=== PATIENT | female | born 1940 | race Hispanic/Latino ===

== ENCOUNTER 2018-01-22 20:29 | Emergency (ER) | payer MEDICARE, MEDICAID ==
[~2018-01-22 20:29] MED LIST: ISOVUE-370 76%-LOCM 1 ML ONE
[2018-01-22 20:58] LABS: #Lymphocytes 0.6 thou/uL (1.20-3.40); #Monocytes 0.3 thou/uL (0.11-0.59); #Neutrophils 5.6 thou/uL (1.40-6.50); %Eosinophils 0.3 % (0.0-10.0); %Lymphocytes 9.1 % (21.0-51.0); %Neutrophils 86.6 % (42.0-75.0); Hemoglobin 14.5 g/dL (12.0-16.0); Mean Corpuscular HGB CONC 32.5 g/dL (32.0-36.0); Mean Corpuscular Hemoglobin 29.8 pg (27.0-31.0); Mean Corpuscular Volume 91.6 fl (81.0-99.0); Mean Platelet Volume 7.8 fL (7.4-10.4); Platelet Count 152 thou/uL (130-400); RBC Distribution Width 12.3 % (11.5-14.5); Red Blood Cell (RBC) Count 4.87 mill/uL (4.20-5.40); White Blood Cell (WBC) Count 6.5 thou/uL (4.8-10.8)
[2018-01-22 21:14] LABS: Lactic Acid 2.7 mmol/L (0.5-2.2)
[2018-01-22 21:17] LABS: ALT (SGPT) 20 U/L (8-55); AST (SGOT) 20 U/L (5-34); Albumin 4.3 g/dL (3.4-4.8); Alkaline Phosphatase 65 U/L (40-150); Anion Gap 16 mmol/L (10-20); BUN (Urea Nitrogen) 14 mg/dL (9.8-20.1); Bilirubin, Total 0.4 mg/dL (0.2-1.2); Calc. Creatinine Clearance 0 mL/min (70-130); Calcium 9.4 mg/dL (7.8-10.44); Carbon Dioxide 21 mmol/L (23-31); Chloride 97 mmol/L (98-107); Estimated GFR-MDRD 60; Globulin 3.3 g/dL (2.4-3.5); Glucose 226 mg/dL (83-110); Potassium 3.7 mmol/L (3.5-5.1); Protein, Total 7.6 g/dL (6.0-8.3); Sodium 130 mmol/L (136-145)
[2018-01-22 21:18] LABS: CK (CPK) 69 U/L (29-168); Lipase 26 U/L (8-78)
[2018-01-22 21:23] LABS: CKMB 0.9 ng/mL (0-6.6); Troponin I Less than 0.010 ng/mL (< 0.028)
--- NOTE | 2018-01-22 21:33 | RAD ---
CHEST ONE VIEW: HISTORY: Fever. Cough. COMPARISON: None. FINDINGS: Atherosclerosis of the aorta. Normal cardiac silhouette. The pulmonary vessels are normal. Costoph renic angles are clear. No consolidation or mass in the right lung. With regard to the left lung ba se, there is a focal opacity. No pneumothorax or osseous abnormalities. IMPRESSION: 1. Atherosclerosis. 2. Focal opacity in the left lung base. Continued surveillance. POS: [facility]
[2018-01-22 22:01] LABS: Bilirubin Negative (Negative); Blood, Urine Negative (Negative); Clarity CLEAR (Clear); Glucose, Urine (Dipstick) 100 mg/dL (Negative); Leukocyte Negative (Negative); Nitrite Negative (Negative); Protein, Urine (Dipstick) Negative (Neg-Trace); Specific Gravity, Urine 1.012 (1.002-1.036); Urobilinogen 0.2 mg/dL (0.2-1.0)
--- NOTE | 2018-01-22 22:38 | CT ---
CT ANGIOGRAM CHEST: HISTORY: Evaluate for pulmonary artery embolism. Worsening cough. History of tobacco abuse. Possible fever. COMPARISON: None. TECHNIQUE: CT angiogram chest is performed in the axial plane. Three-dimensional reformatted images are submitt ed for interpretation. FINDINGS: There is adequate contrast opacification in the pulmonary arterial system, to the level of the segmen jenny arteries. No filling defect to suggest thromboembolism. There is atherosclerosis of a nonaneurysmal aorta. No mediastinal mass, lymphadenopathy, or hematoma . Heart size is within normal limits. There is mild prominence of both central pulmonary arteries. Correlate for pulmonary artery hypertension. Trachea and central bronchi are patent. There is a bleb in the right upper lobe, measuring 2.1 x 1.9 cm. Minimal opacities in the middle lobe, likely due to atelectasis or scar. Linear opacities in t he lingula and left lower lobe, also felt to be due to scar/atelectasis. Left lower lobe bleb measur ing 1.2 x 1.2 cm. No significant pleural fluid. No pneumothorax. There is a cyst in the left hepatic lobe, measuring 1.8 cm. Subcentimeter hypodensity in the right h epatic lobe is too small to characterize. There is a mass involving the left adrenal gland, incompletely evaluated. Currently, this mass has a n attenuation coefficient of 28 Hounsfield units and measures 1.[address] evidence of cholelith iasis. IMPRESSION: 1. No evidence of pulmonary artery embolism to the level of the segmental arteries. 2. Prominence of both pulmonary arteries. Correlate for pulmonary artery hypertension. 3. Indeterminate left adrenal nodule. Nonemergent adrenal mass CT. 4. CT evidence of cholelithiasis without evidence of cholecystitis. 5. Hepatic lesions, as described above. POS: [facility]
== END 2018-01-22 22:52 | disposition home or self-care (01) ==
LOC: ERS 20:29
DX: J20.9 Acute bronchitis, unspecified (principal); E27.9 Disorder of adrenal gland, unspecified; E11.9 Type 2 diabetes mellitus without complications; E78.5 Hyperlipidemia, unspecified; I10 Essential (primary) hypertension; F17.210 Nicotine dependence, cigarettes, uncomplicated; Z71.6 Tobacco abuse counseling; Z79.84 Long term (current) use of oral hypoglycemic drugs; Z79.899 Other long term (current) drug therapy
CPT/HCPCS: 36415; 71045; 71275; 80053; 81003; 82550; 82553; 83605; 83690; 83880; 84484; 85025; 85379; 87040; 93005; 96360; 96361; 99406

== ENCOUNTER 2018-01-25 13:01 | Emergency (ER) | payer MEDICARE, MEDICAID ==
[2018-01-25] MEDS ORDERED: Ondansetron ODT 4 MG TAB ONE (13:15)
== END 2018-01-25 14:42 | disposition left against medical advice (07) ==
LOC: ERS 13:01
DX: Z53.21 Procedure and treatment not carried out due to patient leaving prior to being seen by health care provider (principal)
CPT/HCPCS: Q0162

== ENCOUNTER 2018-02-05 15:36 | Outpatient (CLI) | payer MEDICARE, MEDICAID | END 2018-02-05 15:37 | disposition home or self-care (01) | LOC: BICRAD 15:36 | PROVIDERS: ATTEND Family Medicine | DX: J20.9 Acute bronchitis, unspecified (principal) | CPT/HCPCS: 71046 ==

== ENCOUNTER 2018-04-13 11:14 | Outpatient (CLI) | payer MEDICARE, MEDICAID | END 2018-04-13 11:15 | disposition home or self-care (01) | LOC: BICRAD 11:14 | PROVIDERS: ATTEND Family Medicine | DX: M25.561 Pain in right knee (principal); M17.11 Unilateral primary osteoarthritis, right knee ==

== ENCOUNTER 2018-08-10 09:45 | Outpatient (CLI) | payer MEDICARE, MEDICAID | END 2018-08-10 09:46 | disposition home or self-care (01) | LOC: BICMAMMO 09:45 | PROVIDERS: ATTEND Family Medicine | DX: Z12.31 Encounter for screening mammogram for malignant neoplasm of breast (principal) | CPT/HCPCS: 77063; 77067 ==

== ENCOUNTER 2019-09-03 09:23 | Outpatient (CLI) | payer MEDICARE, MEDICAID ==
--- NOTE | 2019-09-03 10:06 | MMO ---
Bilateral MAMMO Bilat Screen [facility]. CLINICAL HISTORY: Patient is 78 years old and is seen for screening. The patient has no family history of breast cancer. The patient has no personal history of cancer. VIEWS: The views performed were: bilateral craniocaudal with tomosynthesis and bilateral mediolateral oblique with tomosynthesis. FILMS COMPARED: The present examination has been compared to prior imaging studies performed at [facility] on 06/13/2016, 07/24/2017 and 08/10/2018. This study has been interpreted with the assistance of computer-aided detection. MAMMOGRAM FINDINGS: There are scattered fibroglandular densities. There are vascular calcifications seen in both breasts. There are no suspicious masses, suspicious calcifications, or new areas of architectural distortion. IMPRESSION: A ROUTINE FOLLOW-UP MAMMOGRAM IN 1 YEAR IS RECOMMENDED. THE RESULTS OF THIS EXAM WERE SENT TO THE PATIENT. ACR BI-RADS Category 2 - Benign finding MAMMOGRAPHY NOTE: 1. A negative mammogram report should not delay a biopsy if a dominant of clinically suspicious mass is present. 2. Approximately 10% to 15% of breast cancers are not detected by mammography. 3. Adenosis and dense breasts may obscure an underlying neoplasm. Reported by: MIGEL SCHROEDER MD Electonically Signed: [id number]
== END 2019-09-03 09:24 | disposition home or self-care (01) ==
LOC: BICMAMMO 09:23
PROVIDERS: ATTEND Family Medicine
DX: Z12.31 Encounter for screening mammogram for malignant neoplasm of breast (principal)
CPT/HCPCS: 77063; 77067

== ENCOUNTER 2021-09-02 10:06 | Outpatient (CLI) | payer MEDICARE, MEDICAID | END 2021-09-02 10:07 | disposition home or self-care (01) | LOC: BICMAMMO 10:06 | PROVIDERS: ATTEND Family Medicine | DX: Z12.31 Encounter for screening mammogram for malignant neoplasm of breast (principal); Z13.820 Encounter for screening for osteoporosis; N95.9 Unspecified menopausal and perimenopausal disorder | CPT/HCPCS: 77063; 77067; 77080 ==

== ENCOUNTER 2024-07-24 14:01 | Outpatient (CLI) | payer MEDICARE, MEDICAID | END 2024-07-24 14:02 | disposition home or self-care (01) | LOC: BICMAMMO 14:01 | PROVIDERS: ATTEND Family Medicine | DX: Z12.31 Encounter for screening mammogram for malignant neoplasm of breast (principal); M81.0 Age-related osteoporosis without current pathological fracture; N63.10 Unspecified lump in the right breast, unspecified quadrant; Z78.0 Asymptomatic menopausal state | CPT/HCPCS: 77063; 77067; 77080 ==

== ENCOUNTER 2024-08-26 09:55 | Outpatient (CLI) | payer MEDICARE, MEDICAID | END 2024-08-26 09:56 | disposition home or self-care (01) | LOC: BICMAMMO 09:55 | PROVIDERS: ATTEND Family Medicine | DX: N63.22 Unspecified lump in the left breast, upper inner quadrant (principal) | CPT/HCPCS: 76642; 77065; G0279 ==